=== PATIENT | female | born 1955 | race Caucasian/White ===

== ENCOUNTER 2020-06-21 09:46 | Outpatient (CLI) | payer MEDICARE, OTHER ==
--- NOTE | 2020-06-21 11:11 | CT ---
EXAM: CTA Angio Abd Pelvis W KARL Price PROVIDED CLINICAL HISTORY: Abdominal aortic aneurysm repair in February 2020. This is a follow-up evaluation. COMPARISON: None FINDINGS: Postoperative changes related to endograft repair of an abdominal aortic aneurysm is present. The ane urysm sac measures 4.5 cm x 4.3 cm. No findings to suggest an endoleak are visualized. Mild narrowing is seen at the origin of the celiac artery. Superior mesenteric artery is patent. Ther e is a single right renal artery visualized. The origin of the right renal artery is not well assessed due to vascular calcifications and the adjacent endograft. 2 left renal arteries are present . The superiorly located left renal artery is patent. The origin of the more inferiorly located left renal artery is not well assessed due to vascular calcifications and the adjacent endograft. The internal and external iliac arteries are patent with mild narrowing at the origin of the left internal iliac artery. Prominent vascular calcifications are seen involving the common femoral arteri es bilaterally with resultant mild narrowing. Vascular calcifications are seen in the visualized thoracic aorta as well as involving the coronary a rteries. Chronic bibasilar lung changes are present with suggestion of minimal honeycombing at the right lung base. Diminished attenuation of the liver is present related to diffuse fatty infiltration. The spleen, pancreas, bilateral adrenal glands, and kidneys demonstrated a normal CT appearance for a rterial phase imaging. Urinary bladder is decompressed. Uterus and adnexal structures demonstrate a grossly normal CT appear ance for patient's age. Scattered colonic diverticula are present with small amount of retained fecal material seen throughou t the colon. The appendix is visualized and normal in caliber. Mild degenerative changes are noted in the spine. IMPRESSION: 1. Postoperative changes related to endograft repair of abdominal aortic aneurysm. There are no findi ngs to suggest an endoleak. Aneurysm sac diameter measures 4.5 cm x 4.3 cm. 2. Prominent atherosclerotic vascular calcifications. 3. Colonic diverticulosis. 4. Diffuse fatty infiltration liver. 5. Chronic interstitial bibasilar lung changes.
[2020-06-21] MEDS ORDERED: Iopamidol 370 76% 100 ML VIAL ONE (11:53)
== END 2020-06-21 09:47 | disposition home or self-care (01) ==
LOC: BICCT 09:46
PROVIDERS: ATTEND Thoracic Surgery (Cardiothoracic Vascular Surgery)
DX: Z48.812 Encounter for surgical aftercare following surgery on the circulatory system (principal); Z98.890 Other specified postprocedural states; I71.4 Abdominal aortic aneurysm, without rupture; Z86.79 Personal history of other diseases of the circulatory system; K57.30 Diverticulosis of large intestine without perforation or abscess without bleeding; K76.0 Fatty (change of) liver, not elsewhere classified; R91.8 Other nonspecific abnormal finding of lung field; I70.90 Unspecified atherosclerosis
CPT/HCPCS: 74174; 82565; Q9967